=== PATIENT | female | born 1945 | race African-American/Black ===

== ENCOUNTER 2024-04-02 08:03 | Day surgery (SDC) | payer OTHER ==
[2024-03-31 11:37] VITALS: BMI 27.0
[2024-04-02 09:52] VITALS: PULSE 72; RESP 18; TEMP 97
[2024-04-02 09:54] VITALS: BP 129/68
== END 2024-04-02 10:14 | disposition home or self-care (01) ==
LOC: FASU-ENDO 08:03
PROVIDERS: ATTEND Internal Medicine Gastroenterology
PROC: 0DJD8ZZ Inspection of Lower Intestinal Tract, Via Natural or Artificial Opening Endoscopic (ICD-10-PCS; principal; 2024-04-02 09:09)
DX: Z12.11 Encounter for screening for malignant neoplasm of colon (principal); K57.30 Diverticulosis of large intestine without perforation or abscess without bleeding; K64.0 First degree hemorrhoids
CPT/HCPCS: 82962